=== PATIENT | female | born 1940 | race American Indian/Alaskan Native ===

== ENCOUNTER 2017-08-17 08:53 | Outpatient (CLI) | payer MEDICARE ==
--- NOTE | 2017-08-17 11:10 | XRay Report ---
XRAY BILATERAL HIPS AND AP PELVIS THREE VIEWS: 08/17/17 00:00:00 CLINICAL: Bilateral hip pain FINDINGS: Right: No fracture or dislocation. Mild osteoarthritis. Normal soft tissues. Left: No fracture or dislocation. Mild osteoarthritis.Normal soft tissues. The pelvic bones are intact.Bilateral SI joint sclerosis but no erosions. IMPRESSION: Mild bilateral hip osteoarthritis. Bilateral sacroiliitis.
== END 2017-08-17 08:54 | disposition home or self-care (01) ==
LOC: SPVIMAG 08:53
PROVIDERS: ATTEND Orthopaedic Surgery Sports Medicine
DX: M16.0 Bilateral primary osteoarthritis of hip (principal); M46.1 Sacroiliitis, not elsewhere classified
CPT/HCPCS: 73521

== ENCOUNTER 2017-10-05 13:46 | Outpatient (CLI) | payer MEDICARE ==
--- NOTE | 2017-10-05 14:32 | XRay Report ---
Standing lumbar spine: Back pain. AP and lateral views demonstrates a mild tilting to the right in the thoraco-lumbar junction. The upper portion however is not included. In the lateral projection is a grade 1 anterior L4 subluxation with mild narrowing of the L4-5 interspace. There is no spondylolyses. There is significant narrowing between T12 and L1 with anterior spurs. The remaining lumbar levels appear generally unremarkable. Impression: 1. L4 anterior subluxation with narrowed L4-5 disc. 2. Significant degenerative bone and disc changes at T12-L1. 3. Suspicion of thoracic dextroscoliosis.
== END 2017-10-05 13:47 | disposition home or self-care (01) ==
LOC: SPVIMAG 13:46
PROVIDERS: ATTEND Orthopaedic Surgery Sports Medicine
DX: S33.140A Subluxation of L4/L5 lumbar vertebra, initial encounter (principal); M48.061 Spinal stenosis, lumbar region without neurogenic claudication; M41.84 Other forms of scoliosis, thoracic region; M47.895 Other spondylosis, thoracolumbar region; X58.XXXA Exposure to other specified factors, initial encounter; Y93.89 Activity, other specified; Y92.89 Other specified places as the place of occurrence of the external cause; Y99.8 Other external cause status
CPT/HCPCS: 72100

== ENCOUNTER 2019-07-05 15:02 | Observation (INO) | payer MEDICARE ==
--- NOTE | 2019-07-05 16:30 | Event Note ---
ED Screening Note Date of service: 07/05/19 Time: 16:27 ED Screening Note: 78 y/o female comes in for N/V with severe headache. Blurred vision yesterday. This initial assessment/diagnostic orders/clinical plan/treatment(s) is/are subject to change based on patients health status, clinical progression and re- assessment by fellow clinical providers in the ED. Further treatment and workup at subsequent clinical providers discretion. Patient/guardian urged not to elope from the ED as their condition may be serious if not clinically assessed and managed. Initial orders include:
[2019-07-05 16:52] LABS: Basophils # (Auto) 0.1 K/mm3 (0.0-0.1); Basophils % (Auto) 0.7 % (0.0-1.8); Eosinophils % (Auto) 0.5 % (0.0-4.3); Hemoglobin 13.2 gm/dl (10.1-14.3); Lymphocytes # (Auto) 1.2 K/mm3 (1.2-5.4); Mean Corpuscular HGB Conc 33 % (30-34); Mean Corpuscular Volume 91 fl (79-97); Monocytes # (Auto) 0.5 K/mm3 (0.0-0.8); Platelet Count 312 K/mm3 (140-440); Red Blood Count 4.41 M/mm3 (3.65-5.03); Red Cell Distribution Width 12.9 % (13.2-15.2)
[2019-07-05 17:15] LABS: Alanine Aminotransferase 18 units/L (7-56); Albumin 4.6 g/dL (3.9-5); BUN/Creatinine Ratio 12; Blood Urea Nitrogen 11 mg/dL (7-17); Calcium 9.7 mg/dL (8.4-10.2); Hemolysis Index 17
[2019-07-05] MEDS ORDERED: ACETAMINOPHEN 325 MG TAB PO ONE (17:34)
[2019-07-05] MEDS ORDERED: ONDANSETRON 4 MG ODT TAB PO ONE (17:34)
--- NOTE | 2019-07-05 18:36 | Emergency Department Report ---
HPI - General Chief Complaint: Nausea/Vomiting/Diarrhea Time Seen by Provider: 07/05/19 16:27 - HPI HPI: 78-year-old female presents to the emergency department with a few complaints. Patient says that she has been having some right-sided headache that started last night. It has improved without any treatment and is currently at about 6 out of 10 in intensity. She had some blurry vision last night that has since resolved. It has been associated with some nausea and vomiting. The patient also complains of some midsternal chest pressure that has been going on intermittently for weeks. It feels like it radiates towards her back when it o ccurs. She denies any shortness of breath. She has a past medical history of diabetes, hypertension, CVA, GERD. She has not taken anything for any of her symptoms prior to presentation. Denies any tobacco or illicit drug use. Primary care physician is a Dr. Cardenas she has not seen them regarding her symptoms. ED Past Medical Hx - Past Medical History Hx Hypertension: Yes Hx Diabetes: Yes Hx Arthritis: Yes Additional medical history: Herniated disc and acid reflux - Surgical History Additional Surgical History: Hysterectomy - Social History Smoking Status: Never Smoker Substance Use Type: None - Medications Home Medications: Home Medications Medication Instructions Recorded Confirmed Last Taken Type Mirtazapine 7.5 mg PO QPM 05/15/17 10/10/17 05/14/17 22:00 History raNITIdine HCl [Zantac 300 MG TAB] 300 mg PO QDAY 05/15/17 10/10/17 05/14/17 History Losartan [Cozaar] 25 mg PO DAILY #30 tablet 05/16/17 10/10/17 Unknown Rx Mirtazapine [Remeron 15mg TAB] 7.5 mg PO QHS tablet 05/16/17 10/10/17 Unknown Rx AtorvaSTATin 20 mg PO HS 10/10/17 10/10/17 Unknown History AtorvaSTATin [Lipitor] 20 mg PO QHS tablet 10/12/17 Unknown Rx Losartan [Cozaar] 25 mg PO QDAY tablet 10/12/17 Unknown Rx Mirtazapine [Remeron 15mg TAB] 7.5 mg PO QHS tablet 10/12/17 Unknown Rx Omeprazole Magnesium [PriLOSEC Otc] 20 mg PO QDAY #30 tablet. 10/12/17 Unknown Rx Prasugrel HCl [Effient] 5 mg PO QDAY #30 tablet 10/12/17 Unknown Rx ED Review of Systems ROS: Stated complaint: VOMIT/DIZZY/SEVERE HEADACHE PAIN Other details as noted in HPI Comment: All other systems reviewed and negative Constitutional: denies: chills, fever Eyes: vision change (resolved). denies: eye pain ENT: denies: ear pain, throat pain Respiratory: denies: cough, shortness of breath Cardiovascular: chest pain. denies: palpitations Gastrointestinal: denies: abdominal pain, vomiting Genitourinary: denies: dysuria, discharge Musculoskeletal: back pain. denies: arthralgia Skin: denies: rash, lesions Neurological: headache. denies: weakness, numbness, paresthesias Physical Exam - Physical Exam Vital Signs: Vital Signs 07/05/19 07/05/19 16:24 17:13 Temperature 97.8 F 98.3 F Pulse Rate 69 78 Respiratory 20 16 Rate Blood Pressure 118/48 Blood Pressure 123/55 [Right] O2 Sat by Pulse 100 100 Oximetry Physical Exam: GENERAL: The patient is well-developed well-nourished. HEENT: Normocephalic. Atraumatic. Patient has moist mucous membranes. EYES: Extraocular motions are intact. Pupils equal and reactive to light bilaterally. No nystagmus. NECK: Supple. Trachea is midline. CHEST/LUNGS: Clear to auscultation. There is no respiratory distress noted. HEART/CARDIOVASCULAR: Regular. There is no tachycardia. There is no murmur. ABDOMEN: Abdomen is soft, nontender. Patient has normal bowel sounds. There is no abdominal distention. SKIN:Skin is warm and dry. . NEURO: The patient is awake, alert, and oriented. The patient is cooperative. The patient has no focal neurologic deficits. Normal speech. Cranial nerves II through XII grossly intact. No pronator drift. No dysmetria. MUSCULOSKELETAL: There is no tenderness or deformity.There is no evidence of acute injury. ED Course Vital Signs 07/05/19 07/05/19 16:24 17:13 Temperature 97.8 F 98.3 F Pulse Rate 69 78 Respiratory 20 16 Rate Blood Pressure 118/48 Blood Pressure 123/55 [Right] O2 Sat by Pulse 100 100 Oximetry ED Medical Decision Making - Lab Data Result diagrams: 07/05/19 16:40 07/05/19 16:40 - EKG Data -: EKG Interpreted by Me EKG shows normal: sinus rhythm, axis, intervals, QRS complexes, ST-T waves Rate: normal - EKG Data When compared to previous EKG there are: previous EKG unavailable Interpretation: normal EKG - Radiology Data Radiology results: report reviewed, image reviewed interpreted by me: Chest x-ray does not show any pleural effusions, pneumonia, pneumothorax, focal consolidation, or any other acute process. NONENHANCED CT SCAN OF THE HEAD: INDICATION / CLINICAL INFORMATION: 78 years Female; headache. TECHNIQUE: Routine CT head without contrast. All CT scans at this location are performed using CT dose reduction for ALARA by means of automated exposure control. COMPARISON: CT scan of the brain from 10/10/2017 and MRI scan of the brain from 10/11/2017 FINDINGS: BRAIN / INTRACRANIAL CONTENTS: No acute hemorrhage, mass effect, midline shift, hydrocephalus, or acute, large territorial infarct. Chronic lacunae are seen in the right basal ganglia. Periventricular low attenuation areas are seen probably due to microvascular angiopathy. Cortical involution is seen. Hippocampi are relatively well-preserved cord. CT findings remain unchanged. CRANIOCERVICAL JUNCTION: No significant abnormality. ORBITS: No significant abnormality of visualized orbits. SINUSES / MASTOIDS: Mucosal thickening is seen in the inferior right maxillary sinus with retention cysts. ADDITIONAL FINDINGS: None. IMPRESSION: No acute parenchymal lesion in the brain CT findings remain unchanged. CTA CHEST WITH IV CONTRAST INDICATION / CLINICAL INFORMATION: CP, elevated dimer. TECHNIQUE: Axial CT images were obtained through the chest after injection of 100 mL IV contrast. 3 plane MIP and/or 3D reconstructions were produced. All CT scans at this location are performed using CT dose reduction for ALARA by means of automated exposure control. COMPARISON: None available. FINDINGS: PULMONARY ARTERIES: No pulmonary emboli. THORACIC AORTA: No significant abnormality. HEART: No significant abnormality. CORONARY ARTERIES: No significant calcification. PLEURA: No pleural effusion. No pneumothorax. LYMPH NODES: No significant adenopathy. LUNGS: No acute air space or interstitial disease. ADDITIONAL FINDINGS: None. UPPER ABDOMEN: No acute findings. Very small right renal simple cyst incidentally noted. SKELETAL STRUCTURES: No significant osseous abnormality. IMPRESSION: 1. No CT evidence for pulmonary embolism. 2. No acute findings. - Medical Decision Making This patient presents with the complaint of right-sided headache and some midsternal chest pressure. Regarding the right-sided headache, the CT scan of the head did not show any bleed, shift, mass, ischemia or any other acute process. She has no focal, motor or sensory deficits in her cranial nerves are intact. Patient had a ESR of 28 and did not have any complaints of any vision change and therefore appears low suspicion for temporal arteritis. She was given a dose of Tylenol and her headache resolved upon reevaluation. Regarding the midsternal chest pressure, and EKG was done that does not show any ST elevation VT or dysrhythmia. Chest x-ray does not show any acute process. Patient's labs have been mostly unremarkable including negative troponins 2 but she did have a slightly elevated an equivocal d-dimer. For this reason CT angiography of the chest was completed that did not show any pulmonary embolism, dissection, aneurysm, or any other acute process. The patient was reevaluated multiple times for multiple hours and feels improved but still does have some residual chest pressure. She has a moderate heart score of 4. It is been many years since the patient last had a stress test. For these reasons the patient will be admitted to the hospital for further evaluation and treatment was accepted for admission by the hospitalist, Dr. Choudhury. - Differential Diagnosis VT, PE, Migraine, SAH, Temporal Arteritis Critical Care Time: No Critical care attestation.: If time is entered above; I have spent that time in minutes in the direct care of this critically ill patient, excluding procedure time. ED Disposition Clinical Impression: Acute chest pain, Dizziness Headache Qualifiers: Headache type: unspecified Headache chronicity pattern: unspecified pattern Intractability: not intractable Qualified Code(s): R51 - Headache Disposition: OP ADMIT IP TO THIS HOSP Is pt being admited?: Yes Condition: Fair Instructions: Chest Pain (ED) Referrals: PRIMARY CARE, [Primary Care Provider] - 3-5 Days Time of Disposition: 22:31 Heart Score - HEART Score History: Slightly suspicious EKG: Normal Age: > 65 Risk factors: > 3 risk factors or hx of atherosclerotic disease Troponin: < normal limit HEART Score: 4 - Critical Actions Critical Actions: 4-6 pts:12-16.6% risk of adverse cardiac event. Should be admitted
--- NOTE | 2019-07-05 19:04 | Cat Scan Report ---
NONENHANCED CT SCAN OF THE HEAD: INDICATION / CLINICAL INFORMATION: 78 years Female; headache. TECHNIQUE: Routine CT head without contrast. All CT scans at this location are performed using CT dos e reduction for ALARA by means of automated exposure control. COMPARISON: CT scan of the brain from 10/10/2017 and MRI scan of the brain from 10/11/2017 FINDINGS: BRAIN / INTRACRANIAL CONTENTS: No acute hemorrhage, mass effect, midline shift, hydrocephalus, or acu te, large territorial infarct. Chronic lacunae are seen in the right basal ganglia. Periventricular l ow attenuation areas are seen probably due to microvascular angiopathy. Cortical involution is seen. Hippocampi are relatively well-preserved cord. CT findings remain unchanged. CRANIOCERVICAL JUNCTION: No significant abnormality. ORBITS: No significant abnormality of visualized orbits. SINUSES / MASTOIDS: Mucosal thickening is seen in the inferior right maxillary sinus with retention c ysts. ADDITIONAL FINDINGS: None. IMPRESSION: No acute parenchymal lesion in the brain CT findings remain unchanged. Signer Name: Diana Moreno MD Signed: 07/05/2019 6:59 PM Workstation Name: [id number]
--- NOTE | 2019-07-05 21:31 | Cat Scan Report ---
CTA CHEST WITH IV CONTRAST INDICATION / CLINICAL INFORMATION: CP, elevated dimer. TECHNIQUE: Axial CT images were obtained through the chest after injection of 100 mL IV contrast. 3 plane MIP an d/or 3D reconstructions were produced. All CT scans at this location are performed using CT dose redu ction for [facility] by means of automated exposure control. COMPARISON: None available. FINDINGS: PULMONARY ARTERIES: No pulmonary emboli. THORACIC AORTA: No significant abnormality. HEART: No significant abnormality. CORONARY ARTERIES: No significant calcification. PLEURA: No pleural effusion. No pneumothorax. LYMPH NODES: No significant adenopathy. LUNGS: No acute air space or interstitial disease. ADDITIONAL FINDINGS: None. UPPER ABDOMEN: No acute findings. Very small right renal simple cyst incidentally noted. SKELETAL STRUCTURES: No significant osseous abnormality. IMPRESSION: 1. No CT evidence for pulmonary embolism. 2. No acute findings. Signer Name: Socorro Mohamud MD Signed: 07/05/2019 9:27 PM Workstation Name: [id number]
--- NOTE | 2019-07-05 23:12 | XRay Report ---
CHEST 1 VIEW INDICATION / CLINICAL INFORMATION: CP. COMPARISON: 05/01/2014 FINDINGS: SUPPORT DEVICES: None. HEART / MEDIASTINUM: No significant abnormality. LUNGS / PLEURA: No significant pulmonary or pleural abnormality. No pneumothorax. ADDITIONAL FINDINGS: No significant additional findings. IMPRESSION: 1. No acute findings. No interval change. Signer Name: Socorro Mohamud MD Signed: 07/05/2019 11:08 PM Workstation Name: [id number]
[2019-07-06] MEDS ORDERED: ONDANSETRON 4 MG/2 ML INJ IV PRN (00:08)
[2019-07-06] MEDS ORDERED: ACETAMINOPHEN 325 MG TAB PO PRN (00:08)
--- NOTE | 2019-07-06 00:20 | History and Physical Report ---
History of Present Illness Date of examination: 07/05/19 Date of admission: 07/05/19 22:31 Chief complaint: Chest pressure, headache n/v History of present illness: Patient is a 78-year-old female with a past medical history of hypertension, TIA and diabetes mellitus whom presented to the ED of [facility] for evaluation of chest pain intermittently x2 months. Chest pain is right mid chest and described as pressure 3/10 in severity and radiates to her right shoulder blade. Patient states she came to the emergency room today because of the increase in frontal headaches and nausea over the last 2 days. Denies trauma, shortness of breath, dizziness and abdominal pain. Past History Past Medical History: other (As noted in HPI) Past Surgical History: hysterectomy Social history: denies: smoking, prescription drug abuse Family history: diabetes, hypertension Medications and Allergies Allergies Allergy/AdvReac Type Severity Reaction Status Date / Time aspirin AdvReac Unknown Verified 05/01/14 10:36 Home Medications Medication Instructions Recorded Confirmed Last Taken Type Losartan [Cozaar] 25 mg PO QDAY tablet 10/12/17 07/06/19 Unknown Rx Atorvastatin [Lipitor Tab] 40 mg PO QHS 07/06/19 07/06/19 Unknown History Ticagrelor (Nf) [Brilinta (Nf)] 60 mg PO BID 07/06/19 07/06/19 Unknown History Active Meds: Active Medications Acetaminophen (Tylenol) 650 mg PO Q4H PRN PRN Reason: Pain MILD(1-3)/Fever >100.5/BASS Ondansetron HCl (Zofran) 4 mg IV Q8H PRN PRN Reason: Nausea And Vomiting Sodium Chloride (Sodium Chloride Flush Syringe 10 Ml) 10 ml IV BID [place] Sodium Chloride (Sodium Chloride Flush Syringe 10 Ml) 10 ml IV PRN PRN PRN Reason: LINE FLUSH Review of Systems All systems: negative Constitutional: no fever, no chills, no sweats Ears, nose, mouth and throat: no nose pain, no nasal congestion, no sinus pressure Cardiovascular: high blood pressure, no orthopnea, no lightheadedness, no shortness of breath Respiratory: no hemoptysis, no shortness of breath, no dyspnea on exertion Gastrointestinal: nausea, no diarrhea, no constipation Genitourinary Female: no urgency, no stress incontinence, no post void dribbling Rectal: no pain, no incontinence, no bleeding Musculoskeletal: no myalgias, no atrophy, no limitation of motion Integumentary: no rash, no sores, no jaundice Neurological: no weakness, no numbness, no tingling, no seizures Psychiatric: no difficulties concentrating, no confusion, no irritability Endocrine: no polydipsia, no polyuria, no nocturia Hematologic/Lymphatic: no lymphadenopathy, no lymphedema Allergic/Immunologic: no allergic rhinitis Exam - Constitutional Vitals: Temp Pulse Resp BP Pulse Ox 98.8 F 74 18 132/64 100 07/06/19 00:05 07/05/19 23:51 07/06/19 00:05 07/06/19 00:05 07/05/19 23:51 General appearance: Present: no acute distress - EENT Eyes: Present: PERRL ENT: hearing intact, clear oral mucosa - Neck Neck: Present: supple, normal ROM - Respiratory Respiratory effort: normal Respiratory: bilateral: CTA - Cardiovascular Heart Sounds: Present: S1 & S2. Absent: rub, click - Extremities Extremities: pulses symmetrical, No edema Peripheral Pulses: within normal limits - Abdominal General gastrointestinal: Present: soft, non-tender, non-distended, normal bowel sounds Female genitourinary: Present: normal - Integumentary Integumentary: Present: clear, warm, dry - Musculoskeletal Musculoskeletal: gait normal, strength equal bilaterally - Psychiatric Psychiatric: appropriate mood/affect, intact judgment & insight - Neurologic Neurologic: CNII-XII intact, moves all extremities Results - Labs CBC & Chem 7: 07/05/19 16:40 07/05/19 16:40 Labs: Laboratory Last Values WBC 8.9 K/mm3 (4.5-11.0) 07/05/19 16:40 RBC 4.41 M/mm3 (3.65-5.03) 07/05/19 16:40 Hgb 13.2 gm/dl (10.1-14.3) 07/05/19 16:40 Hct 40.0 % (30.3-42.9) 07/05/19 16:40 MCV 91 fl (79-97) 07/05/19 16:40 MCH 30 pg (28-32) 07/05/19 16:40 MCHC 33 % (30-34) 07/05/19 16:40 RDW 12.9 % (13.2-15.2) L 07/05/19 16:40 Plt Count 312 K/mm3 (140-440) 07/05/19 16:40 Lymph % (Auto) 13.0 % (13.4-35.0) L 07/05/19 16:40 Jay % (Auto) 6.0 % (0.0-7.3) 07/05/19 16:40 Eos % (Auto) 0.5 % (0.0-4.3) 07/05/19 16:40 Baso % (Auto) 0.7 % (0.0-1.8) 07/05/19 16:40 Lymph # 1.2 K/mm3 (1.2-5.4) 07/05/19 16:40 Jay # 0.5 K/mm3 (0.0-0.8) 07/05/19 16:40 Eos # 0.0 K/mm3 (0.0-0.4) 07/05/19 16:40 Baso # 0.1 K/mm3 (0.0-0.1) 07/05/19 16:40 Seg Neutrophils % 79.8 % (40.0-70.0) H 07/05/19 16:40 Seg Neutrophils # 7.1 K/mm3 (1.8-7.7) 07/05/19 16:40 ESR 28 mm/Hr (0-20) 07/05/19 18:01 D-Dimer 464.64 ng/mlDDU (0-234) H 07/05/19 18:01 Sodium 140 mmol/L (137-145) 07/05/19 16:40 Potassium 4.3 mmol/L (3.6-5.0) 07/05/19 16:40 Chloride 102.4 mmol/L (98-107) 07/05/19 16:40 Carbon Dioxide 20 mmol/L (22-30) L 07/05/19 16:40 Anion Gap 22 mmol/L 07/05/19 16:40 BUN 11 mg/dL (7-17) 07/05/19 16:40 Creatinine 0.9 mg/dL (0.7-1.2) 07/05/19 16:40 Estimated GFR > 60 ml/min 07/05/19 16:40 BUN/Creatinine Ratio 12 % 07/05/19 16:40 Glucose 105 mg/dL (65-100) H 07/05/19 16:40 Calcium 9.7 mg/dL (8.4-10.2) 07/05/19 16:40 Magnesium 2.20 mg/dL (1.7-2.3) 07/05/19 16:40 Total Bilirubin 0.70 mg/dL (0.1-1.2) 07/05/19 16:40 AST 22 units/L (5-40) 07/05/19 16:40 ALT 18 units/L (7-56) 07/05/19 16:40 Alkaline Phosphatase 65 units/L (35-129) 07/05/19 16:40 Troponin T < 0.010 ng/mL (0.00-0.029) 07/05/19 20:47 Total Protein 7.5 g/dL (6.3-8.2) 07/05/19 16:40 Albumin 4.6 g/dL (3.9-5) 07/05/19 16:40 Albumin/Globulin Ratio 1.6 % 07/05/19 16:40 - Imaging and Cardiology Chest x-ray: report reviewed (No acute findings) CT scan - chest: report reviewed (No acute findings. No CT evidence for pulmonary embolism. ) CT Scan - head: report reviewed (No acute parenchymal lesion in the brain) Assessment and Plan Assessment and plan: The patient has been seen in conjunction with Dr. Choudhury who agrees with the assessment and plan of care. Chest pain -Patient is allergic to aspirin and aspirin will not be started. -Cardiology consult -Echocardiogram 11/2017 -Nitroglycerin sublingual when necessary. -Admit to observation unit on telemetry. Hypertension -Home meds once reconciled -Monitor BP q shift Diabetes mellitus -Patient is not on any diabetes medication; sts borderline -Accu-Chek achs - sliding scale insulin if needed DVT prophylaxis -SCDs bilaterally - lovenox subcutaneous VTE prophylaxis?: Chemical Plan of care discussed with patient/family: Yes
[2019-07-06] MEDS: LOSARTAN 25 MG TAB PO SCH (09:30)
[2019-07-06] MEDS ORDERED: ENOXAPARIN 40 MG/0.4 ML INJ SUB-Q SCH (22:00)
[2019-07-07] MEDS: LOSARTAN 25 MG TAB PO SCH (09:04)
[2019-07-07 09:08] LABS: Basophils # (Auto) 0.1 K/mm3 (0.0-0.1); Basophils % (Auto) 1.3 % (0.0-1.8); Eosinophils # (Auto) 0.2 K/mm3 (0.0-0.4); Eosinophils % (Auto) 2.6 % (0.0-4.3); Hematocrit 35.9 % (30.3-42.9); Hemoglobin 11.7 gm/dl (10.1-14.3); Lymphocytes # (Auto) 2.3 K/mm3 (1.2-5.4); Lymphocytes % (Auto) 38.6 % (13.4-35.0); Mean Corpuscular HGB Conc 33 % (30-34); Mean Corpuscular Volume 89 fl (79-97); Monocytes # (Auto) 0.7 K/mm3 (0.0-0.8); Monocytes % (Auto) 11.5 % (0.0-7.3); Platelet Count 266 K/mm3 (140-440); Red Blood Count 4.03 M/mm3 (3.65-5.03); Red Cell Distribution Width 12.9 % (13.2-15.2)
[2019-07-07 09:21] LABS: BUN/Creatinine Ratio 16; Blood Urea Nitrogen 13 mg/dL (7-17); Calcium 9.1 mg/dL (8.4-10.2); Hemolysis Index 12
--- NOTE | 2019-07-07 11:32 | Discharge Summary ---
Providers - Providers Date of Admission: 07/05/19 22:31 Attending physician: JOAQUIN RANGEL Primary care physician: GAYATRI MADISON MD Hospitalization Condition: Fair Exam - Constitutional Vitals: Temp Pulse Resp BP Pulse Ox 98.8 F 79 18 127/67 100 07/07/19 09:08 07/07/19 09:08 07/07/19 09:08 07/07/19 09:08 07/07/19 09:08 Plan Follow up with: GAYATRI MDAISON MD [Primary Care Provider] - 3-5 Days
[2019-07-07 12:30] VITALS: BP 124/63
== END 2019-07-07 16:08 | disposition home or self-care (01) ==
LOC: ED 15:02 → 4A 22:31
PROVIDERS: ADMIT Internal Medicine Geriatric Medicine; ATTEND Internal Medicine
DX: R07.9 Chest pain, unspecified (principal); I10 Essential (primary) hypertension; E11.9 Type 2 diabetes mellitus without complications; R42 Dizziness and giddiness; R11.2 Nausea with vomiting, unspecified; R19.7 Diarrhea, unspecified; Z79.899 Other long term (current) drug therapy; Z90.710 Acquired absence of both cervix and uterus
CPT/HCPCS: 36415; 70450; 71045; 71275; 80048; 80053; 82962; 83735; 84484; 85025; 85379; 85652; 93005; 93010; 93306; 96372; 99284; A9270; G0378; J1650; Q9967; Q0162